=== PATIENT | male | born 1935 | race Caucasian/White ===

== ENCOUNTER 2016-08-14 09:00 | Observation (INO) | payer OTHER ==
[~2016-08-14] VITALS: Ht 177.8 cm; Wt 93.6 kg
[~2016-08-14 09:00] MED LIST: ASPIRIN81 M1 PO; BENICAR40 MG PO; COREG CR40 MG PO; CRESTOR20 MG PO; Fish Oil PO; GLUCOPHAGE500 MG PO
[2016-08-14] MEDS ORDERED: JANUVIA25 M1 PO (09:24)
[2016-08-14] MEDS ORDERED: AMLODIPINE BESYL5 MG PO (09:25)
[2016-08-14] MEDS ORDERED: MULTI-VITAMIN1 EAC4 PO (09:27)
[2016-08-14 10:17] LABS: HEMATOCRIT 37.7 % (38.0-50.0); MCH 30.4 PG (29.0-34.0); MCHC 34.5 G/DL (30.0-36.0); MCV 88.1 FL (86-99); MEAN PLAT.VOLUME 11.2 uM^3 (9.0-12.4); PLATELET COUNT 178 K/uL (156-360); RBC DIS.WIDTH-CV 12.6 % (11.8-14.6); RBC DIS.WIDTH-SD 39.7 % (39-53); RED BLOOD COUNT 4.28 M/uL (4.00-5.50)
[2016-08-14 10:39] LABS: TROP-I INTERPRETATION NEGATIVE; TROPONIN-I 0.02 ng/mL (0.0-0.30)
[2016-08-14 10:41] LABS: ANION GAP 11 MEQ/L (2-14); CHLORIDE 106 MEQ/L (99-109); POTASSIUM 4.5 MEQ/L (3.7-5.4); SAMPLE HEMOLYSIS CHECK 1; SAMPLE ICTERIC CHECK 0; SAMPLE LIPEMIA CHECK 0; SODIUM 140 MEQ/L (136-147)
[2016-08-14 10:46] LABS: GFR ESTIMATE (CALCULATED) 52 mL/min/; GLUCOSE 130 mg/dL (70-99); UREA NITROGEN (BUN) 24 mg/dL (9-23)
[2016-08-14] MEDS ORDERED: DAILY VALUE1 EACH PO (11:02)
[2016-08-14] MEDS ORDERED: ASPIR 8181 M1 PO (11:02)
[2016-08-14] MEDS ORDERED: FISH OIL OMEGA1 EAC2 PO (11:04)
[2016-08-14 11:09] LABS: D-DIMER ELISA 1.09 mg/L FEU (< 0.57)
[2016-08-14 14:48] VITALS: BP 199/81
[2016-08-14 16:12] VITALS: BP 175/79
[2016-08-14 17:12] LABS: POINT-OF-CARE METER ID UU14162513
[2016-08-14 17:20] LABS: TROP-I INTERPRETATION NEGATIVE; TROPONIN-I 0.02 ng/mL (0.0-0.30)
[2016-08-14 19:59] VITALS: BP 141/69
[2016-08-14 21:03] LABS: POINT-OF-CARE METER ID UU14162513
[2016-08-14 23:33] LABS: TROP-I INTERPRETATION NEGATIVE; TROPONIN-I 0.03 ng/mL (0.0-0.30)
[2016-08-15] VITALS: BP 107/51
[2016-08-15 04:34] VITALS: BP 115/56
[2016-08-15 06:25] LABS: ANION GAP 8 MEQ/L (2-14); CHLORIDE 109 MEQ/L (99-109); GFR ESTIMATE (CALCULATED) 44 mL/min/; GLUCOSE 114 mg/dL (70-99); POTASSIUM 3.9 MEQ/L (3.7-5.4); SAMPLE HEMOLYSIS CHECK 0; SAMPLE ICTERIC CHECK 0; SAMPLE LIPEMIA CHECK 0; SODIUM 143 MEQ/L (136-147); UREA NITROGEN (BUN) 22 mg/dL (9-23)
[2016-08-15 08:55] LABS: POINT-OF-CARE METER ID UU14162513
[2016-08-15 09:00] VITALS: BP 152/67
[2016-08-15] MEDS ORDERED: CARVEDILOL6.25 MG PO (10:54)
[2016-08-15 12:37] LABS: POINT-OF-CARE METER ID UU13113831
[2016-08-15 12:52] VITALS: BP 159/73
== END 2016-08-15 13:19 | disposition home or self-care (01) ==
LOC: EME 09:00 → EDOF 13:19 → 5WEST 14:45
PROVIDERS: Emergency Medicine; Hospitalist; Internal Medicine
DX: R07.89 Other chest pain (principal); I95.1 Orthostatic hypotension; R42 Dizziness and giddiness; H53.8 Other visual disturbances; R06.02 Shortness of breath; R20.0 Anesthesia of skin; R26.2 Difficulty in walking, not elsewhere classified; R53.83 Other fatigue; I12.9 Hypertensive chronic kidney disease with stage 1 through stage 4 chronic kidney disease, or unspecified chronic kidney disease; N18.3 Chronic kidney disease, stage 3 (moderate); E78.5 Hyperlipidemia, unspecified; I45.10 Unspecified right bundle-branch block; I44.4 Left anterior fascicular block; I25.10 Atherosclerotic heart disease of native coronary artery without angina pectoris; Z95.1 Presence of aortocoronary bypass graft; Z87.891 Personal history of nicotine dependence
CPT/HCPCS: 71020; 78582; 80048; 82948; 83880; 84484; 85027; 85379; 93005; 93306; 93880; 99202; 99281; 99285; A9540; A9567; G0378; J1644; J1815; J7030

== ENCOUNTER 2017-07-22 18:04 | Emergency (ER) | payer OTHER ==
[~2017-07-22] VITALS: Ht 177.8 cm; Wt 79.7 kg
[~2017-07-22 18:04] MED LIST changes: +AMLODIPINE BESYL5 MG PO; +ASPIR 8181 M1 PO; +CARVEDILOL6.25 MG PO; +DAILY VALUE1 EACH PO; +FISH OIL OMEGA1 EAC2 PO; +JANUVIA25 M1 PO; +MULTI-VITAMIN1 EAC4 PO
[2017-07-22] MEDS ORDERED: NORVASC2.5 MG PO (18:21)
[2017-07-22 19:29] LABS: CARBON DIOXIDE (BICARBONATE) 30.6 MEQ/L (20-31); HEMATOCRIT 35.2 % (38.0-50.0); HEMOGLOBIN 12.1 G/DL (12.5-16.6); MCH 30.7 PG (29.0-34.0); MCHC 34.4 G/DL (30.0-36.0); MCV 89.3 FL (86-99); RBC DIS.WIDTH-CV 12.3 % (11.8-14.6); RBC DIS.WIDTH-SD 39.8 % (39-53); RED BLOOD COUNT 3.94 M/uL (4.00-5.50); WHITE BLOOD COUNT 6.8 K/uL (4.1-10.2)
[2017-07-22 19:34] LABS: PLATELET COUNT 147 K/uL (156-360)
[2017-07-22 19:40] LABS: ALBUMIN 3.8 g/dL (3.2-4.8); CHLORIDE 99 mEq/L (99-109); POTASSIUM 4.2 mEq/L (3.7-5.4); SODIUM 134 mEq/L (136-147)
[2017-07-22 19:41] LABS: MAGNESIUM 1.9 mg/dL (1.3-2.7)
[2017-07-22 19:43] LABS: GLUCOSE 148 mg/dL (70-99); TOTAL PROTEIN 6.8 g/dL (6.4-8.3)
[2017-07-22 19:44] LABS: TOTAL BILIRUBIN 0.4 mg/dL (0.0-1.0)
[2017-07-22 19:46] LABS: ALKALINE PHOSPHATASE 40 IU/L (3-129); CREATININE 1.7 mg/dL (0.6-1.3); GFR ESTIMATE (CALCULATED) 41 mL/min/ (58.99-99999)
[2017-07-22 19:47] LABS: UREA NITROGEN (BUN) 19 mg/dL (9-23)
[2017-07-22 19:48] LABS: AST (GOT) 25 IU/L (2-34)
[2017-07-22 19:49] LABS: ALT (GPT) 22 IU/L (3-49)
[2017-07-22 19:50] LABS: LIPASE 13 U/L (1.0-51.0)
[2017-07-22 19:51] LABS: TROP-I INTERPRETATION NEGATIVE; TROPONIN-I 0.04 ng/mL (0.0-0.30)
[2017-07-22] MEDS ORDERED: AFRIN,GENASAL D15 ML BOTH NARES (20:46)
[2017-07-22] MEDS ORDERED: ZITHROMAX Z-PA250 MG PO (20:46)
[2017-07-22 21:10] VITALS: BP 168/88
== END 2017-07-22 21:15 | disposition home or self-care (01) ==
LOC: EME 18:04
PROVIDERS: Emergency Medicine
DX: R55 Syncope and collapse (principal); J18.9 Pneumonia, unspecified organism; R09.81 Nasal congestion; I10 Essential (primary) hypertension; E78.5 Hyperlipidemia, unspecified; E11.9 Type 2 diabetes mellitus without complications; K21.9 Gastro-esophageal reflux disease without esophagitis; Z79.84 Long term (current) use of oral hypoglycemic drugs; Z79.82 Long term (current) use of aspirin; Z95.1 Presence of aortocoronary bypass graft; Z85.9 Personal history of malignant neoplasm, unspecified; W18.30XA Fall on same level, unspecified, initial encounter
CPT/HCPCS: 70450; 71045; 80053; 82010; 82803; 83605; 83690; 83735; 83930; 84484; 85027; 87040; 93005; 99281; 99285; J7030

== ENCOUNTER 2017-09-06 15:33 | Inpatient (IN) | payer OTHER ==
[~2017-09-06] VITALS: Ht 177.8 cm; Wt 81.2 kg
[~2017-09-06 15:33] MED LIST changes: +AFRIN,GENASAL D15 ML BOTH NARES; +NORVASC2.5 MG PO; +ZITHROMAX Z-PA250 MG PO
[2017-09-06 15:49] LABS: BASOPHIL (%) 0.9 % (0-1); BASOPHIL COUNT 0.1 K/uL (0-0.1); EOSINOPHIL (%) 2.9 % (0-5); EOSINOPHIL COUNT 0.2 K/uL (0-0.3); HEMOGLOBIN 12.5 G/DL (12.5-16.6); IMMATURE GRANULOCYTE (%) 0.3 % (0.0-0.7); LYMPHOCYTE (%) 18.1 % (15-42); LYMPHOCYTE COUNT 1.4 K/uL (1.0-2.8); MCH 30.5 PG (29.0-34.0); MCHC 33.8 G/DL (30.0-36.0); MCV 90.2 FL (86-99); MONOCYTE (%) 11.4 % (3-12); MONOCYTE COUNT 0.9 K/uL (0-0.8); NEUTROPHIL (%) 66.4 % (45-76); PLATELET COUNT 190 K/uL (156-360); RBC DIS.WIDTH-CV 12.6 % (11.8-14.6); RBC DIS.WIDTH-SD 41.4 % (39-53); WHITE BLOOD COUNT 7.5 K/uL (4.1-10.2)
[2017-09-06 15:58] LABS: PTT 28.1 SEC (25-37)
[2017-09-06 16:07] LABS: AMYLASE 92 IU/L (1-118); CHLORIDE 104 mEq/L (99-109); SODIUM 137 mEq/L (136-147)
[2017-09-06 16:09] LABS: GLUCOSE 196 mg/dL (70-99)
[2017-09-06 16:12] LABS: CREATININE 1.6 mg/dL (0.6-1.3); GFR ESTIMATE (CALCULATED) 44 mL/min/ (58.99-99999); SERUM ETHYL ALCOHOL < 10 mg/dL
[2017-09-06 16:13] LABS: UREA NITROGEN (BUN) 21 mg/dL (9-23)
[2017-09-06 16:15] LABS: LIPASE 18 U/L (1.0-51.0)
[2017-09-06 16:18] LABS: TROP-I INTERPRETATION NEGATIVE; TROPONIN-I 0.02 ng/mL (0.0-0.30)
[2017-09-06 16:44] LABS: APPEARANCE CLEAR ((CLEAR)); BILIRUBIN NEGATIVE; BLOOD NEGATIVE; COLOR STRAW ((YELLOW)); GLUCOSE (STRIP) NEGATIVE; KETONES NEGATIVE; LEUKOCYTES NEGATIVE; NITRITE NEGATIVE; PROTEIN (STRIP) NEGATIVE; SPECIFIC GRAVITY 1.008 (1.000-1.030); UCUL ADDED? NO; UROBILINOGEN 0.2 MG/DL (0.2-1.0)
[2017-09-06 17:37] LABS: HDL CHOLESTEROL 31 MG/DL (Desirable>=40); LDL CHOLESTEROL 29 mg/dL (Desirable<100); NON-HDL CHOLESTEROL 96 mg/dL (Desirable<160); TOTAL CHOLESTEROL 127 mg/dL (Desirable<200); TRIGLYCERIDES 335 MG/DL (Normal: <150)
[2017-09-06 18:00] VITALS: BP 231/123
[2017-09-06 18:33] VITALS: BP 182/80
[2017-09-06 20:00] VITALS: BP 178/76
[2017-09-06 21:00] VITALS: BP 188/76; BP 188/86
[2017-09-06 22:17] LABS: BENZODIAZEPINES, URINE SCREEN Negative (200 ng/mL)
[2017-09-06 23:00] VITALS: BP 190/82
[2017-09-07] VITALS (7 sets, daily range): BP systolic 121–185; BP diastolic 56–94
[2017-09-07 10:02] LABS: HEMOGLOBIN A1c (GLYCOHEMOGLOB) 6.5 % (Below 5.7)
[2017-09-08 04:26] VITALS: BP 152/70
[2017-09-08 07:19] VITALS: BP 163/84
[2017-09-08 12:19] VITALS: BP 162/76
[2017-09-08] MEDS ORDERED: PLAVIX75 MG PO (12:50)
[2017-09-08 15:14] VITALS: BP 167/77
== END 2017-09-08 16:17 | disposition home or self-care (01) | DRG 66 ==
LOC: EME → EDBD 15:33 → EDOF 16:46 → ENRESERV 17:01 → 5WEST 17:50 → 4EAST 19:59 → ENRESERV 20:32 → 4EAST 20:46
PROVIDERS: Emergency Medicine; Hospitalist; Student in an Organized Health Care Education/Training Program
DX: I63.9 Cerebral infarction, unspecified (principal); Z87.891 Personal history of nicotine dependence; I10 Essential (primary) hypertension; I25.10 Atherosclerotic heart disease of native coronary artery without angina pectoris; R26.0 Ataxic gait; E78.5 Hyperlipidemia, unspecified; R47.81 Slurred speech; E11.51 Type 2 diabetes mellitus with diabetic peripheral angiopathy without gangrene; R47.01 Aphasia; R55 Syncope and collapse; E11.22 Type 2 diabetes mellitus with diabetic chronic kidney disease; I12.9 Hypertensive chronic kidney disease with stage 1 through stage 4 chronic kidney disease, or unspecified chronic kidney disease; N18.3 Chronic kidney disease, stage 3 (moderate); Z95.1 Presence of aortocoronary bypass graft; Z86.73 Personal history of transient ischemic attack (TIA), and cerebral infarction without residual deficits
CPT/HCPCS: 70450; 70496; 70498; 70551; 80047; 80048; 80061; 80306 90; 81003; 82150; 82948; 83036; 83690; 84484; 85025; 85610; 85730; 86850; 86900; 86901; 92523 GN; 93005; 93306; 97530 GP; 99281; 99285; G0480; J0360; J1644; J7030